=== PATIENT | male | born 1970 | race Caucasian/White ===

== ENCOUNTER 2017-07-17 13:22 | Emergency (ER) | payer SELFPAY ==
[2017-07-17 13:43] VITALS: BP 139/98; PULSE 115; BMI 25.0
[2017-07-17] MEDS ORDERED: SODIUM CHLORIDE 1,000 ML IV SCH (14:00)
--- NOTE | 2017-07-17 14:08 | PDOC ---
History of Present Illness - General Chief Complaint: Alcohol intoxication Stated Complaint: FALL/INTOXICATION Time Seen by Provider: 07/17/17 13:55 History Source: Patient Exam Limitations: Intoxication - History of Present Illness Initial Comments: 07/17/17 14:04 47 y/o male brought to ed by ems for evaluation, pt found lying on the ground by some rocks. Pt admits to drinking a lot of alcohol but will not says what he was drinking just that it was a lot. Pt with alcohol on breath, pt not actually voicing any complaints pt is aware that he is at [facility]. Pt says [birth year] was his birthday Timing/Duration: 1 hour Severity: moderate Associated Symptoms: denies: chest pain, cough, diaphoresis, nausea/vomiting Past History - Past Medical History Allergies/Adverse Reactions: Allergies Allergy/AdvReac Type Severity Reaction Status Date / Time No Known Allergies Allergy Verified 06/09/11 06:55 Home Medications: Ambulatory Orders Insulin (Levemir) [Levemir Flexpen -] 20 units SQ HS #0 units 06/13/11 Metformin HCl [Glucophage] 500 mg PO BID #60 tab 06/13/11 Asthma: No Cardiac Disorders: No COPD: No Diabetes: Yes (not on any medicatiom) GI Disorders: No Disorders: No HTN: No Kidney Stones: No Seizures: No - Suicide/Smoking/Psychosocial Hx Smoking History: Current every day smoker Have you smoked in the past 12 months: Yes Number of Cigarettes Smoked Daily: 20 Information on smoking cessation initiated: No Hx Alcohol Use: Yes Drug/Substance Use Hx: No Substance Use Type: Alcohol, Marijuana Hx Substance Use Treatment: No *Physical Exam - Vital Signs Last Vital Signs Temp Pulse Resp BP Pulse Ox 115 H 20 139/98 100 07/17/17 13:41 07/17/17 13:41 07/17/17 13:41 07/17/17 13:41 - Physical Exam General Appearance: Yes: Nourished, Appropriately Dressed. No: Apparent Distress HEENT: positive: EOMI, SHERRY, TMs Normal, Pharynx Normal Neck: positive: Supple Respiratory/Chest: positive: Lungs Clear, Normal Breath Sounds. negative: Respiratory Distress Cardiovascular: positive: Regular Rhythm, Regular Rate, S1, S2 Gastrointestinal/Abdominal: positive: Normal Bowel Sounds, Soft. negative: Guarding, Tenderness Integumentary: positive: Normal Color, Dry, Warm. negative: Erythema, Rash Neurologic: positive: Alert, Normal Response, Motor Strength 5/5 Heart Score/ECG Review - ECG Intrepretation Rhythm: Regular Rhythm (st at 103 nl axis) ED Treatment Course - LABORATORY CBC & Chemistry Diagram: 07/17/17 17:42 07/17/17 17:42 - RADIOLOGY Radiology Studies Ordered: Category Date Time Status HEAD CT WITHOUT CONTRAST [CT] Stat CT Scan 07/17/17 13:57 Ordered Medical Decision Making - Medical Decision Making 07/17/17 14:09 47 y/o male brought to ed by ems after he was found lying on the ground intoxicated, pt not offering any complaints, pt not able to say how much he drank, no signs of trauma, MDM: will obtain cbc, cmp, mg, head ct, ua, urine tox, alcohol level,will give iv fluid due to tachycardia,ekg and reevaluate 07/17/17 14:11 07/17/17 18:[address] no acute pathology , alcohol level 350 pt will need to remain in ed a few hours for =alcohol evel to decrease before dc home pt does not have any relatives he can call to pick him up, pt ambulatory in ed with a steady gait, and was able to eat dinner. 07/17/17 18:59 case endorsed to oncoming to Dr Yan to discharge home in a few hours. 07/17/17 19:55
[2017-07-17 18:14] LABS: ALBUMIN 4.1 g/dl (3.4-5.0); ANION GAP 8 (8-16); BLOOD UREA NITROGEN 11 mg/dL (7-18); CALCIUM 8.4 mg/dL (8.5-10.1); CHLORIDE 109 mmol/L (98-107); CO2 24 mmol/L (21-32); CREATININE 0.8 mg/dL (0.7-1.3); GLUCOSE,RANDOM 79 mg/dL (74-106); POTASSIUM 4.3 mmol/L (3.5-5.1); SGOT/AST 28 U/L (15-37); SGPT/ALT 27 U/L (12-78); SODIUM 141 mmol/L (136-145)
[2017-07-17 18:15] LABS: ALK PHOS 78 U/L (45-117); BILIRUBIN,TOTAL 0.1 mg/dL (0.2-1.0); TOT PROT 7.6 g/dl (6.4-8.2)
[2017-07-17 18:25] LABS: BASO % 0.9 % (0-2.0); EOS % 1.5 % (0-4.5); HEMATOCRIT 32.6 % (35.4-49); HEMOGLOBIN 11.2 GM/dL (11.7-16.9); MCH 30.5 pg (25.7-33.7); MCHC 34.4 g/dl (32.0-35.9); MEAN CELL VOLUME 88.8 fl (80-96); MEAN PLT VOLUME 10.1 fl (7.5-11.1); MONO % 6.7 % (3.8-10.2); NEUT % 51.9 % (42.8-82.8); PLATELET COUNT 234 K/MM3 (134-434); RBC 3.67 M/mm3 (4.00-5.60); RDW 13.9 % (11.9-15.9); WHITE BLOOD COUNT 6.1 K/mm3 (4.0-10.0)
--- NOTE | 2017-07-17 20:34 | PDOC ---
*Physical Exam - Vital Signs Last Vital Signs Temp Pulse Resp BP Pulse Ox 115 H 20 139/98 100 07/17/17 13:41 07/17/17 13:41 07/17/17 13:41 07/17/17 13:41 - Physical Exam Comments: 07/17/17 20:33 "GENERAL: Awake, alert, and fully oriented, in no acute distress HEAD: No signs of trauma EYES: PERRLA, EOMI, sclera anicteric, conjunctiva clear ENT: Auricles normal inspection, hearing grossly normal, nares patent, oropharynx clear without exudates. Moist mucosa NECK: Nontender, no stepoffs, Normal ROM, supple, no lymphadenopathy, JVD, or masses LUNGS: Breath sounds equal, clear to auscultation bilaterally. No wheezes, and no crackles HEART: Regular rate and rhythm, normal S1 and S2, no murmurs, rubs or gallops ABDOMEN: Soft, nontender, normoactive bowel sounds. No guarding, no rebound. No masses EXTREMITIES: Normal range of motion, no edema. No clubbing or cyanosis. No cords, erythema, or tenderness NEUROLOGICAL: Cranial nerves II through XII intact. 5/5 strength and sensation in all extremities, Normal speech, normal gait, normal cerebellar function SKIN: Warm, Dry, normal turgor, no rashes or lesions noted. " ED Treatment Course - LABORATORY CBC & Chemistry Diagram: 07/17/17 17:42 07/17/17 17:42 - ADDITIONAL ORDERS Additional order review: Laboratory Results 07/17/17 07/17/17 17:42 17:42 Sodium 141 Potassium 4.3 D Chloride 109 H Carbon Dioxide 24 D Anion Gap 8 BUN 11 D Creatinine 0.8 D Creat Clearance w eGFR > 60 Random Glucose 79 D Calcium 8.4 L Total Bilirubin 0.1 L D AST 28 ALT 27 D Alkaline Phosphatase 78 Total Protein 7.6 Albumin 4.1 Alcohol, Quantitative 356.80 H* 07/17/17 17:42 RBC 3.67 L MCV 88.8 MCHC 34.4 RDW 13.9 MPV 10.1 Neutrophils % 51.9 Lymphocytes % 39.0 Monocytes % 6.7 Eosinophils % 1.5 Basophils % 0.9 Medical Decision Making - Medical Decision Making 07/17/17 20:33 Sign out taken from Dr. Larson at 7pm. 47 M BIBA for ETOH intoxication. No acute complaints. Plan at sign out is to allow pt to metabolize, DC when sober. Pt reassessed after sign out, pt now awake, alert, ambulatory with steady gait. Pt states that he feels well, denies any complaints, denies any injury or pain. Pt AnOx3, denies SI/HI/AVH. Appears clinically sober. Pt is well appearing, with normal vitals. Clinically stable for DC at this time. I discussed the physical exam findings, ancillary test results and final diagnoses with the patient. I answered all of the patient's questions. The patient was satisfied with the care received and felt comfortable with the discharge plan and treatment plan. The patient agrees to follow up with the primary care physician within 24-72 hours. *DC/Admit/Observation/Transfer Diagnosis at time of Disposition: Alcohol intoxication - Discharge Dispostion Disposition: HOME - Referrals - Patient Instructions Printed Discharge Instructions: DI for Alcohol Abuse - Post Discharge Activity - Attestations Physician Attestion: 07/17/17 20:34 I, Dr. Ghulam Ribeiro MD, attest that this document has been prepared under my direction and personally reviewed by me in its entirety. I further attest, that it accurately reflects all work, treatment, procedures and medical decision -making performed by me.
--- NOTE | 2017-07-18 21:37 | EKG ---
Test Reason : Blood Pressure : / mmHG Vent. Rate : 103 BPM Atrial Rate : 103 BPM P-R Int : 196 ms QRS Dur : 084 ms QT Int : 336 ms P-R-T Axes : 040 025 055 degrees QTc Int : 440 ms POOR DATA QUALITY, INTERPRETATION MAY BE ADVERSELY AFFECTED SINUS TACHYCARDIA EARLY REPOLARIZATION NO PREVIOUS ECGS AVAILABLE Confirmed by JEANINE FLORES MD ([id number]) on 07/18/2017 9:37:19 PM Referred By: Confirmed By:JEANINE FLORES MD
== END 2017-07-17 22:25 | disposition home or self-care (01) ==
LOC: JER 13:22
DX: F10.120 Alcohol abuse with intoxication, uncomplicated (principal); Y90.8 Blood alcohol level of 240 mg/100 ml or more; E11.9 Type 2 diabetes mellitus without complications; F17.210 Nicotine dependence, cigarettes, uncomplicated
CPT/HCPCS: 36415; 70450-TC; 80053; 80307; 85025; 93005; 93010; 99281-25

== ENCOUNTER 2022-07-19 13:53 | Emergency (ER) | payer SELFPAY ==
[2022-07-19] MEDS ORDERED: ASPIRIN 325 MG TABLET PO ONE (14:12)
[2022-07-19] MEDS ORDERED: SODIUM CHLORIDE 0.9% 500 ML INFUS.BAG IV ONE (14:14)
[2022-07-19] MEDS ORDERED: TICAGRELOR 90 MG TABLET PO ONE ×3 (14:23→14:30)
[2022-07-19] MEDS ORDERED: ASPIRIN 81 MG CHEWABLE TABLETS PO ONE (14:27)
[2022-07-19] MEDS ORDERED: ASPIRIN 81 MG CHEWABLE TABLETS ONE (14:28)
[2022-07-19] MEDS ORDERED: HEPARIN NA (PORCINE) 5,000 UNITS/ML 1ML VIAL IVPUSH PRN ×2 (14:35)
[2022-07-19] MEDS ORDERED: HEPARIN NA (PORCINE) 5,000 UNITS/ML 1ML VIAL IVPUSH ONE (14:38)
[2022-07-19] MEDS ORDERED: HEPARIN INFUSION - 25,000 UNIT/500 ML INFUS.BAG IVPB SCH (14:45)
[2022-07-19 14:48] LABS: BASO % 0.3 % (0-2.0); HEMATOCRIT 32.1 % (35.4-49); LYMPH % 6.2 % (8-40); MCH 29.2 pg (25.7-33.7); MCHC 34.1 g/dl (32.0-35.9); MEAN CELL VOLUME 85.6 fl (80-96); MEAN PLT VOLUME 10.6 fl (7.5-11.1); MONO % 7.4 % (3.8-10.2); NEUT % 86.1 % (42.8-82.8); PLATELET COUNT 207 10^3/uL (134-434); RBC 3.75 M/mm3 (4.00-5.60); RDW 13.6 % (11.9-15.9); WHITE BLOOD COUNT 15.3 K/mm3 (4.0-10.0)
[2022-07-19] MEDS ORDERED: HEPARIN INFUSION - 25,000 UNITS/500 ML INFUS.BAG IVPB ONE (14:49)
[2022-07-19] MEDS ORDERED: HEPARIN NA (PORCINE) 5,000 UNITS/ML 1ML VIAL ONE (14:49)
[2022-07-19 14:50] LABS: VENOUS O2 SATURATION 19.4 % (70-80); VENOUS PCO2 41.6 mmHg (38-52); VENOUS PH 7.464 (7.310-7.410)
[2022-07-19 15:03] LABS: ALBUMIN 3.5 g/dl (3.4-5.0); BLOOD UREA NITROGEN 98.3 mg/dL (7-18); CALCIUM 9.3 mg/dL (8.5-10.1)
[2022-07-19 15:06] LABS: CREATININE 4.5 mg/dL (0.55-1.3)
[2022-07-19 15:09] LABS: TOT PROT 8.1 g/dl (6.4-8.2)
[2022-07-19] MEDS ORDERED: FUROSEMIDE 40 MG/4 ML INJECTABLE VIAL IVPUSH ONE (15:16)
[2022-07-19 15:30] LABS: N-TERMINAL BNP 100280.6 pg/ml (5-125)
[2022-07-19] MEDS ORDERED: ACETAMINOPHEN 1000 MG/100 ML BAG IVPB ONE (15:35)
[2022-07-19] MEDS ORDERED: ACETAMINOPHEN INJECTION 100 ML IVPB ONE (15:36)
[2022-07-19] MEDS ORDERED: FUROSEMIDE 40 MG/4 ML INJECTABLE VIAL ONE (15:36)
[2022-07-19 15:56] VITALS: RESP 18; TEMP 98
[2022-07-19 15:59] VITALS: BP 83/68; PULSE 116
[2022-07-19 16:02] LABS: URINE APPEARANCE CLOUDY; URINE BILIRUBIN NEGATIVE (NEGATIVE); URINE COLOR YELLOW; URINE GLUCOSE (UA) NEGATIVE (NEGATIVE); URINE KETONE TRACE (NEGATIVE); URINE LEUK ESTERASE NEGATIVE (NEGATIVE); URINE NITRITE NEGATIVE (NEGATIVE); URINE PROTEIN TRACE (NEGATIVE)
[2022-07-19 16:14] LABS: INR 1.4 (0.83-1.09); PROTHROMBIN TIME (PATIENT) 16.2 SEC (9.7-13.0)
[2022-07-19 16:16] LABS: ACTIVATED PTT 23.3 SECONDS (25.2-36.5)
[2022-07-19 16:38] LABS: LACTIC ACID 4.5 mmol/L (0.4-2.0)
== END 2022-07-19 16:06 | disposition short-term general hospital (02) ==
LOC: JER 13:53 → MERGE 13:53 → JER 16:06
PROC: 3E033GC Introduction of Other Therapeutic Substance into Peripheral Vein, Percutaneous Approach (ICD-10-PCS; principal; 2022-07-19)
PROC: 3E033GC Introduction of Other Therapeutic Substance into Peripheral Vein, Percutaneous Approach (ICD-10-PCS; 2022-07-19)
PROC: 3E033GC Introduction of Other Therapeutic Substance into Peripheral Vein, Percutaneous Approach (ICD-10-PCS; 2022-07-19)
DX: I21.02 ST elevation (STEMI) myocardial infarction involving left anterior descending coronary artery (principal); J81.0 Acute pulmonary edema; I95.0 Idiopathic hypotension; R06.02 Shortness of breath; I42.9 Cardiomyopathy, unspecified; E87.1 Hypo-osmolality and hyponatremia; Z20.822 Contact with and (suspected) exposure to COVID-19
CPT/HCPCS: 0241U-QW; 36415; 71045-TC-FY; 80053; 81003; 82550; 82553; 82803; 82962; 83605; 83880; 84484; 85025; 85610; 85730; 86850; 86900; 86901; 87040; 87086; 93005; 93010; 99285-25; J1644